=== PATIENT | male | born 1995 | race Hispanic/Latino ===

== ENCOUNTER 2021-04-08 15:35 | Emergency (ER) | payer BC ==
[2021-04-08] MEDS ORDERED: Ondansetron ODT 4 MG TAB ONE (17:12)
[2021-04-09 22:59] LABS: SARS-CoV-2 PCR by NAA Not Detected (NotDetected)
== END 2021-04-08 18:39 | disposition home or self-care (01) ==
LOC: MADERS 15:35
DX: B34.9 Viral infection, unspecified (principal); Z20.822 Contact with and (suspected) exposure to COVID-19
CPT/HCPCS: 87081; 87430; 87804; 99284; Q0162; U0003; U0005

== ENCOUNTER 2021-07-08 09:27 | Emergency (ER) | payer BC ==
[2021-07-08] MEDS ORDERED: Ibuprofen 800 MG TAB ONE (10:03)
[2021-07-08] MEDS ORDERED: Ondansetron ODT 4 MG TAB ONE (10:03)
[2021-07-08] MEDS ORDERED: Acetaminophen 500 MG TAB ONE (10:03)
[2021-07-08] MEDS ORDERED: Sodium Chloride 0.9% 1,000 ML ONE (12:21)
[2021-07-09 00:48] LABS: SARS-CoV-2 PCR by NAA Not Detected (NotDetected)
== END 2021-07-08 13:28 | disposition home or self-care (01) ==
LOC: MADERS 09:27
DX: J06.9 Acute upper respiratory infection, unspecified (principal); Z20.822 Contact with and (suspected) exposure to COVID-19
CPT/HCPCS: 87804; 93005; 99284; J7050; Q0162; U0003; U0005